=== PATIENT | female | born 1960 | race Caucasian/White ===

== ENCOUNTER 2016-05-03 20:27 | Inpatient (IN) | payer MEDICAID, OTHER ==
[~2016-05-03] VITALS: Ht 157.5 cm; Wt 130.0 kg
[~2016-05-03 20:27] MED LIST: ACCUTES; ASPI81 PO; ATOR20TA PO; BUME2TAB PO; CYCL1PAK PO; DIAZ5 PO; GABA400C5 PO; GLIM1TAB PO; HOME 02; HYDR10SO PO; KLOR20TA6 PO; LEVO150T7 PO; LISI-357 PO; METO5TAB46 PO; OMEP20TA OR; PREC50TA PO; RANI150T PO; SERT25TA83 PO
[2016-05-03 20:31] VITALS: BP 166/73; PULSE 68; RESP 20; TEMP 99.4; O2SAT 94
[2016-05-03] MEDS ORDERED: SODIUM CHLORIDE 0.9% FLUSH 5 ML FLUSH IVF PRN (20:45)
--- NOTE | 2016-05-03 20:46 | PD ---
HPI Chief Complaint: Altered Mental Status Time Seen by Provider: 20:43 Travel History International Travel<30 days: No Contact w/Intl Traveler<30days: No Traveled to known affect area: No History of Present Illness HPI Patient brought in by EMS for reportedly being altered at home today. Paramedics report that family reports patient does this from time to time when she does not want to be bothered, but does have a history of DKA, diabetic coma , as well as COPD and is noncompliant with her medicine per family per EMS. Patient denies any complaints currently. Denies any chest pain, shortness of breath, headache, fever, abdominal pain, numbness or tingling anywhere, or loss or change in bowel or bladder. Patient reports her blood sugars usually run around 100-150. Per EMS patient oxygen saturation was 86%'s percent on room air upon their arrival. PFSH Past Medical History Arthritis: Yes Asthma: No Autoimmune Disease: Yes (lupus) Blood Disorders: No Anxiety: No Depression: No Heart Rhythm Problems: Yes (SLOW HEART RATE AT TIMES PER PT) Cancer: No Cardiac Catheterization: Yes Cardiovascular Problems: Yes High Cholesterol: Yes Chemotherapy: No Chest Pain: No Congestive Heart Failure: Yes COPD: Yes (02 AT HOME) Cerebrovascular Accident: No Coronary Artery Disease: Yes Diabetes: Yes Patient Takes Glucophage: No Diminished Hearing: No Gastrointestinal Disorders: Yes (ACID REFULX) GERD: Yes Glaucoma: No Headaches: Yes Hepatitis: No Hiatal Hernia: Yes Hypertension: Yes Kidney Stones: No Musculoskeletal: Yes (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) Immunizations Current: No Myocardial Infarction: No Radiation Therapy: No Renal Failure: No Seizures: No Sickle Cell Disease: No Sleep Apnea: No Thyroid Disease: Yes (HYPO) Triglycerides - High: Yes Ulcer: Yes (IN PAST) Tetanus Vaccination: Unknown ?: Not Menopausal: Yes : 1 Para: 0 Miscarriage: 1 : 0 Past Surgical History Abdominal Surgery: No AICD: No Cardiac Surgery: No Coronary Artery Bypass Graft: No Ear Surgery: No Endocrine Surgery: No Eye Surgery: No Genitourinary Surgery: No Gynecologic Surgery: No Oral Surgery: No Pacemaker: No Thoracic Surgery: No Family History Family Myocardial Infarction: Yes Social History Alcohol Use: No Tobacco Use: No (3 PPD FOR 30 YEARS-QUIT 2005) Substance Use: No Allergies-Medications (Allergen,Severity, Reaction): Coded Allergies: Clindamycin (Verified Allergy, Severe, HIVES, 05/03/16) Xanax (Verified Allergy, Severe, HALLUCINATIONS, 05/03/16) Elavil (Verified Adverse Reaction, Severe, N/V, 05/03/16) Tetracyclines (Verified Adverse Reaction, Severe, Diarrhea, 05/03/16) Reported Meds & Prescriptions Reported Meds & Active Scripts Active Reported Amaryl (Glimepiride) 1 Mg Tab 0.5 Mg PO DAILY Take with breakfast or first main meal [place] (Hydrocodone-Acetaminophen) 10-325 Mg Tab 2 Tab PO Q4H PRN Zoloft (Sertraline HCl) 50 Mg Tab 75 Mg PO DAILY Oxycodone (Oxycodone HCl) 10 Mg Tab 10 Mg PO Q4H PRN Methadone (Methadone HCl) 10 Mg Tab 10 Mg PO BID Atorvastatin (Atorvastatin Calcium) 20 Mg Tab 20 Mg PO DAILY Lipitor (Atorvastatin Calcium) 20 Mg Tab 20 Mg PO HS Phenergan (Promethazine HCl) 25 Mg Tab 25 Mg PO Q6H PRN Nitroglycerin SL (Nitroglycerin) 0.4 Mg Subl 0.4 Mg SL DIRECTED PRN ONE TABLET UNDER THE TONGUE NEEDED FOR CHEST PAIN, MAY REPEAT EVERY FIVE MINUTES FOR A TOTAL OF 3 DOSES OR CALL 911 IF NO RELIEF Flexeril (Cyclobenzaprine HCl) 10 Mg Tab 10 Mg PO TID PRN Albuterol Neb (Albuterol Sulfate) 2.5 Mg/3 Ml Neb 2.5 Mg NEB Q4HR NEB PRN While awake Baclofen 10 Mg Tab 10 Mg PO TID PRN Metolazone 5 Mg Tab 5 Mg PO EVERY OTHER DAY Levothyroxine (Levothyroxine Sodium) 200 Mcg Tab 225 Mcg PO DAILY Valium (Diazepam) 5 Mg Tab 5 Mg PO Q6HR PRN Calcium (Calcium Carbonate) 600 Mg Tab 600 Mg PO DAILY Prilosec (Omeprazole) 20 Mg Cap 20 Mg PO BID Gabapentin 400 Mg Cap 400 Cap PO TID Bumex (Bumetanide) 2 Mg Tab 2 Mg PO EVERY OTHER DAY Precose (Acarbose) 25 Mg Tab 25 Mg PO DAILY Take with first bite of meal. Senna S (Sennosides-Docusate Sodium) 8.6-50 Mg Tab Lipitor (Atorvastatin Calcium) 40 Mg Tab 40 Mg PO HS Aspirin 81 (Aspirin) 81 Mg Tabdr 81 Mg PO DAILY Lisinopril 5 Mg Tab 5 Mg PO HS Ambien (Zolpidem Tartrate) 5 Mg Tab 5 Mg PO HS PRN Metronidazole Topical 0.75 % Gel 1 Applic TOPICAL BID Potassium Chloride CR (Potassium Chloride) 10 Meq Tab 20 Meq PO HS Acid Shoe Planner (Ranitidine HCl) 75 Mg Tab 75 Mg PO BID Review of Systems Except as stated in HPI: all other systems reviewed are Neg Physical Exam Narrative GENERAL: Well-developed, overly nourished, in no acute distress, and non-ill appearing. SKIN: Warm and dry. HEAD: Atraumatic. Normocephalic. EYES: Pupils equal and round. EOMI. No scleral icterus. No injection or drainage. ENT: No nasal bleeding or discharge. Mucous membranes pink and moist. NECK: Trachea midline. Supple. No nuclear rigidity. CARDIOVASCULAR: Regular rate and rhythm. No murmur appreciated. RESPIRATORY: No accessory muscle use. No respiratory distress. Clear to auscultation. Breath sounds equal bilaterally. GASTROINTESTINAL: Abdomen soft, non-tender, nondistended. Hepatic and splenic margins not palpable. Normal bowel sounds 4. No pulsatile mass. MUSCULOSKELETAL: No obvious deformities. No clubbing. No cyanosis. No edema. Full range of motion. NEUROLOGICAL: Awake and alert. No obvious cranial nerve deficits. Motor grossly within normal limits. Normal speech. PSYCHIATRIC: Appropriate mood and affect; insight and judgment normal. Data Data Last Documented VS Vital Signs Date Time Temp Pulse Resp B/P Pulse Ox O2 Delivery O2 Flow Rate FiO2 05/03/16 21:15 98 35 05/03/16 20:59 Nasal Cannula 4 05/03/16 20:31 99.4 68 20 166/73 Orders Electrocardiogram (05/03/16 20:39) Alcohol (Ethanol) (05/03/16 20:39) Ammonia (05/03/16 20:39) Complete Blood Count With Diff (05/03/16 20:39) Comprehensive Metabolic Panel (05/03/16 20:39) Creatine Kinase (Cpk) (05/03/16 20:39) Drug Screen, Random Urine (05/03/16 20:39) Prothrombin Time / Inr (Pt) (05/03/16 20:39) Act Partial Throm Time (Ptt) (05/03/16 20:39) Troponin I (05/03/16 20:39) Thyroid Stimulating Hormone (05/03/16 20:39) Urinalysis - C+S If Indicated (05/03/16 20:39) Arterial Blood Gas (Abg) (05/03/16 20:39) Chest, Single Ap (05/03/16 20:39) Ct Brain W/O Iv Contrast(Rout) (05/03/16 20:39) Blood Glucose (05/03/16 20:39) Ecg Monitoring (05/03/16 20:39) Iv Access Insert/Monitor (05/03/16 20:39) Oximetry (05/03/16 20:39) Sodium Chloride 0.9% Flush (Ns Flush) (05/03/16 20:45) Lipase (05/03/16 20:39) Beta Hydroxybutyrate (Acetone) (05/03/16 20:39) Resp Bipap / Cpap Non Invas Vt (05/03/16 21:25) Admit Order (Ed Use Only) (05/03/16 23:04) Labs Laboratory Tests Test 05/03/16 05/03/16 05/03/16 20:45 20:50 21:10 White Blood Count 6.1 TH/MM3 Red Blood Count 3.60 MIL/MM3 Hemoglobin 10.0 GM/DL Hematocrit 31.3 % Mean Corpuscular Volume 87.0 FL Mean Corpuscular Hemoglobin 27.7 PG Mean Corpuscular Hemoglobin 31.8 % Concent Red Cell Distribution Width 14.8 % Platelet Count 173 TH/MM3 Mean Platelet Volume 9.4 FL Neutrophils (%) (Auto) 63.6 % Lymphocytes (%) (Auto) 23.8 % Monocytes (%) (Auto) 9.2 % Eosinophils (%) (Auto) 2.8 % Basophils (%) (Auto) 0.6 % Neutrophils # (Auto) 3.9 TH/MM3 Lymphocytes # (Auto) 1.5 TH/MM3 Monocytes # (Auto) 0.6 TH/MM3 Eosinophils # (Auto) 0.2 TH/MM3 Basophils # (Auto) 0.0 TH/MM3 CBC Comment DIFF FINAL Differential Comment Prothrombin Time 10.1 SEC Prothromb Time International 0.9 RATIO Ratio Activated Partial 25.7 SEC Thromboplast Time Sodium Level 138 MEQ/L Potassium Level 5.2 MEQ/L Chloride Level 97 MEQ/L Carbon Dioxide Level 35.1 MEQ/L Anion Gap 6 MEQ/L Blood Urea Nitrogen 19 MG/DL Creatinine 0.86 MG/DL Estimat Glomerular Filtration 69 ML/MIN Rate Random Glucose 87 MG/DL Calcium Level 8.7 MG/DL Total Bilirubin 0.2 MG/DL Aspartate Amino Transf 14 U/L (AST/SGOT) Alanine Aminotransferase 15 U/L (ALT/SGPT) Alkaline Phosphatase 74 U/L Ammonia 24 MCMOL/L Total Creatine Kinase 41 U/L Troponin I LESS THAN 0.02 NG/ML Total Protein 7.8 GM/DL Albumin 3.0 GM/DL Lipase 112 U/L Thyroid Stimulating Hormone 2.250 uIU/ML 3rd Gen Ethyl Alcohol Level LESS THAN 3 MG/DL B-Hydroxybutyrate 0.07 MMOL/L Urine Color YELLOW Urine Turbidity CLEAR Urine pH 5.5 Urine Specific [place] 1.014 Urine Protein NEG mg/dL Urine Glucose (UA) NEG mg/dL Urine Ketones NEG mg/dL Urine Occult Blood NEG Urine Nitrite NEG Urine Bilirubin NEG Urine Urobilinogen LESS THAN 2.0 MG/DL Urine Leukocyte Esterase NEG Urine RBC LESS THAN 1 /hpf Urine WBC LESS THAN 1 /hpf Urine Squamous Epithelial <1 /hpf Cells Urine Hyaline Casts 10 /lpf Urine Mucus FEW /lpf Microscopic Urinalysis Comment CATH-CULT NOT IND Urine Opiates Screen NEG Urine Barbiturates Screen NEG Urine Amphetamines Screen NEG Urine Benzodiazepines Screen NEG Urine Cocaine Screen NEG Urine Cannabinoids Screen NEG Blood Gas Puncture Site RT RADIAL Blood Gas Patient Temperature 98.6 Blood Gas HCO3 35 mmol/L Blood Gas Base Excess 8.9 mmol/L Blood Gas Oxygen Saturation 92 % Arterial Blood pH 7.31 Arterial Blood Partial 73 mmHg Pressure CO2 Arterial Blood Partial 78 mmHG Pressure O2 Arterial Blood Oxygen Content 13.4 Vol % Arterial Blood 2.3 % Carboxyhemoglobin Arterial Blood Methemoglobin 2.1 % Blood Gas Hemoglobin 10.3 G/DL Oxygen Delivery Device NASAL CANNULA Blood Gas Liter Flow 2 L/M Blood Gas Inspired Oxygen 28 % [facility] Medical Decision Making Medical Screen Exam Complete: Yes Emergency Medical Condition: Yes Interpretation(s) EKG reviewed by Dr. Riggins, shows sinus rhythm with ventricular rate 66. No STEMI Differential Diagnosis DKA, hypoxia, pneumothorax, intracranial hemorrhage, medical noncompliance, electrolyte abnormality, pneumonia, other Narrative Course 2199 patient's hospice runner nurse reports patient is on hospice for nonspecific heart failure. Patient was seen and examined. Initial laboratory radiological studies were ordered. BiPAP was started after patient's ABG shows respiratory acidosis with a PCO2 of 72.6. Discussed patient with Dr. Riggins, who saw and evaluated the patien is in agreement with plan of care and disposition. Physician Communication Physician Communication [phone] Neumann, who is agreeable to admit the patient. Diagnosis Primary Impression: Generalized weakness Additional Impression: Hypercapnia Admitting Information Admitting Physician Requests: Admit Condition: Stable Jose Ty May 03, 2016 20:46
[2016-05-03 20:59] VITALS: O2SAT 95
--- NOTE | 2016-05-03 21:11 | PD ---
Physical Exam Narrative General: The patient is a well-developed well-nourished, obese female, in no acute distress. Head and Neck exam: Head is normocephalic atraumatic. Eyes: Pupils are equal round and reactive to light. Nose: Midline septum with pink mucous membranes Mouth: Dentition unremarkable. Moist mucus membranes. Posterior oropharynx is not erythematous. No tonsillar hypertrophy. Uvula midline. Airway patent. Neck: No palpable lymphadenopathy. No nuchal rigidity. No thyromegaly. Cardiovascular: Regular rate and rhythm without murmurs, gallops, or rubs. Lungs: Clear to auscultation bilaterally. No wheezes, rhonchi, or rales. Abdomen: Soft, without tenderness to palpation in all 4 quadrants of the abdomen. No guarding, rebound, or rigidity. Normal bowel sounds are audible. Extremities: No clubbing, cyanosis, or edema. 2+ pulses in all 4 extremities. Neurologic Exam: Grossly nonfocal. Data Data Last Documented VS Vital Signs Date Time Temp Pulse Resp B/P Pulse Ox O2 Delivery O2 Flow Rate FiO2 05/03/16 21:15 98 35 05/03/16 20:59 Nasal Cannula 4 05/03/16 20:31 99.4 68 20 166/73 Orders Electrocardiogram (05/03/16 20:39) Alcohol (Ethanol) (05/03/16 20:39) Ammonia (05/03/16 20:39) Complete Blood Count With Diff (05/03/16 20:39) Comprehensive Metabolic Panel (05/03/16 20:39) Creatine Kinase (Cpk) (05/03/16 20:39) Drug Screen, Random Urine (05/03/16 20:39) Prothrombin Time / Inr (Pt) (05/03/16 20:39) Act Partial Throm Time (Ptt) (05/03/16 20:39) Troponin I (05/03/16 20:39) Thyroid Stimulating Hormone (05/03/16 20:39) Urinalysis - C+S If Indicated (05/03/16 20:39) Arterial Blood Gas (Abg) (05/03/16 20:39) Chest, Single Ap (05/03/16 20:39) Ct Brain W/O Iv Contrast(Rout) (05/03/16 20:39) Blood Glucose (05/03/16 20:39) Ecg Monitoring (05/03/16 20:39) Iv Access Insert/Monitor (05/03/16 20:39) Oximetry (05/03/16 20:39) Sodium Chloride 0.9% Flush (Ns Flush) (05/03/16 20:45) Lipase (05/03/16 20:39) Beta Hydroxybutyrate (Acetone) (05/03/16 20:39) Resp Bipap / Cpap Non Invas Vt (05/03/16 21:25) Admit Order (Ed Use Only) (05/03/16 23:04) Labs Laboratory Tests Test 05/03/16 05/03/16 05/03/16 20:45 20:50 21:10 White Blood Count 6.1 TH/MM3 Red Blood Count 3.60 MIL/MM3 Hemoglobin 10.0 GM/DL Hematocrit 31.3 % Mean Corpuscular Volume 87.0 FL Mean Corpuscular Hemoglobin 27.7 PG Mean Corpuscular Hemoglobin 31.8 % Concent Red Cell Distribution Width 14.8 % Platelet Count 173 TH/MM3 Mean Platelet Volume 9.4 FL Neutrophils (%) (Auto) 63.6 % Lymphocytes (%) (Auto) 23.8 % Monocytes (%) (Auto) 9.2 % Eosinophils (%) (Auto) 2.8 % Basophils (%) (Auto) 0.6 % Neutrophils # (Auto) 3.9 TH/MM3 Lymphocytes # (Auto) 1.5 TH/MM3 Monocytes # (Auto) 0.6 TH/MM3 Eosinophils # (Auto) 0.2 TH/MM3 Basophils # (Auto) 0.0 TH/MM3 CBC Comment DIFF FINAL Differential Comment Prothrombin Time 10.1 SEC Prothromb Time International 0.9 RATIO Ratio Activated Partial 25.7 SEC Thromboplast Time Sodium Level 138 MEQ/L Potassium Level 5.2 MEQ/L Chloride Level 97 MEQ/L Carbon Dioxide Level 35.1 MEQ/L Anion Gap 6 MEQ/L Blood Urea Nitrogen 19 MG/DL Creatinine 0.86 MG/DL Estimat Glomerular Filtration 69 ML/MIN Rate Random Glucose 87 MG/DL Calcium Level 8.7 MG/DL Total Bilirubin 0.2 MG/DL Aspartate Amino Transf 14 U/L (AST/SGOT) Alanine Aminotransferase 15 U/L (ALT/SGPT) Alkaline Phosphatase 74 U/L Ammonia 24 MCMOL/L Total Creatine Kinase 41 U/L Troponin I LESS THAN 0.02 NG/ML Total Protein 7.8 GM/DL Albumin 3.0 GM/DL Lipase 112 U/L Thyroid Stimulating Hormone 2.250 uIU/ML 3rd Gen Ethyl Alcohol Level LESS THAN 3 MG/DL B-Hydroxybutyrate 0.07 MMOL/L Urine Color YELLOW Urine Turbidity CLEAR Urine pH 5.5 Urine Specific [place] 1.014 Urine Protein NEG mg/dL Urine Glucose (UA) NEG mg/dL Urine Ketones NEG mg/dL Urine Occult Blood NEG Urine Nitrite NEG Urine Bilirubin NEG Urine Urobilinogen LESS THAN 2.0 MG/DL Urine Leukocyte Esterase NEG Urine RBC LESS THAN 1 /hpf Urine WBC LESS THAN 1 /hpf Urine Squamous Epithelial <1 /hpf Cells Urine Hyaline Casts 10 /lpf Urine Mucus FEW /lpf Microscopic Urinalysis Comment CATH-CULT NOT IND Urine Opiates Screen NEG Urine Barbiturates Screen NEG Urine Amphetamines Screen NEG Urine Benzodiazepines Screen NEG Urine Cocaine Screen NEG Urine Cannabinoids Screen NEG Blood Gas Puncture Site RT RADIAL Blood Gas Patient Temperature 98.6 Blood Gas HCO3 35 mmol/L Blood Gas Base Excess 8.9 mmol/L Blood Gas Oxygen Saturation 92 % Arterial Blood pH 7.31 Arterial Blood Partial 73 mmHg Pressure CO2 Arterial Blood Partial 78 mmHG Pressure O2 Arterial Blood Oxygen Content 13.4 Vol % Arterial Blood 2.3 % Carboxyhemoglobin Arterial Blood Methemoglobin 2.1 % Blood Gas Hemoglobin 10.3 G/DL Oxygen Delivery Device NASAL CANNULA Blood Gas Liter Flow 2 L/M Blood Gas Inspired Oxygen 28 % [facility] Medical Record Reviewed: Yes Supervised Visit with ORALIA: Yes Interpretation(s) Last Impressions Head CT 05/03/162038 Signed Impressions: Service Date/Time: Wednesday, May 04, 2016 01:13 - CONCLUSION: Normal examination. Gerard Wylie MD Chest X-Ray 05/03/162038 Signed Impressions: Service Date/Time: Tuesday, May 03, 2016 20:43 - CONCLUSION: Cardiomegaly with subsegmental basilar air space disease. Differential diagnosis includes early changes of pulmonary edema. Adeel Perez MD Narrative Course I, Dr. Riggins, have reviewed the advance practice practitioner's documentation and am in agreement, met with the patient face to face, made the diagnosis, and the medical decision making was done by me. The patient was initially evaluated by Jose, the physician delinquent tax collection assistant, please see his complete history and physical. *My assessment and Findings: The patient is a 56-year-old female who presents to [facility] emergency Department with a reported history of earlier this evening falling. She reports that it seemed like her legs just gave out on her. She denies having any generalized weakness prior to this. She denies having any injury. She reports that she was home with family when this occurred. She denies having any chest pain, chest pressure, shortness of breath, nausea, vomiting, diarrhea, change in bowel movements. The patient denies taking any prescribed sedative medications were pain medication. The patient on arrival appears to be slightly drowsy. The patient's strength is equal in all extremities. The patient denies having any acute complaints. She denies any recent changes in her medication regimen. A workup was started. Laboratory studies were remarkable for an ABG that showed hypercapnia which could be a possible cause of the patient's altered mentation, generalized weakness. CMP was remarkable for a potassium of 5.2, CO2 35.1, BUN 19, creatinine 0.86. The patient's mild hyperkalemia could also be a cause of the patient's generalized weakness. Ammonia level was normal at 24. Initial set of cardiac enzymes were negative. TSH 2.25, urine drug screen was negative. Beta hydroxybutyrate is normal. Alcohol level is normal. CT scan of the brain showed no acute abnormality. Chest x-ray showed cardiomegaly subsegmental basilar airspace disease which could represent early changes of pulmonary edema. The patient will be admitted to the hospital for altered mentation, generalized weakness, hypercapnia and hyperkalemia. The patients results were discussed with the patient, including the plan of care. I explained that further testing and/ or monitoring is indicated based on the patients history, examination, and/ or laboratory findings. Therefore, I recommended admission for additional evaluation. The patient expressed understanding and was agreeable with this plan. The patient was admitted to the hospital in stable condition and [facility]. Diagnosis Primary Impression: Generalized weakness Additional Impressions: Hypercapnia Hyperkalemia Admitting Information Admitting Physician Requests: Admit Simran Riggins MD May 03, 2016 21:11
[2016-05-03 21:15] VITALS: O2SAT 98
[2016-05-03 21:18] LABS: AUTOMATED NEUTROPHIL # 3.9 TH/MM3 (1.8-7.7); BASOPHIL % 0.6 % (0.0-2.0); EOSINOPHIL # 0.2 TH/MM3 (0-0.4); EOSINOPHIL % 2.8 % (0.0-4.0); HEMATOCRIT 31.3 % (35.0-46.0); HEMO FLAGS DIFF FINAL; LYMPH % 23.8 % (9.0-44.0); LYMPHOCYTE # 1.5 TH/MM3 (1.0-4.8); MEAN CORPUSCULAR HEMOGLOBIN 27.7 PG (27.0-34.0); MEAN CORPUSCULAR HGB CONC 31.8 % (32.0-36.0); MONO % 9.2 % (0.0-8.0); NEUT % 63.6 % (16.0-70.0); PLATELET COUNT 173 TH/MM3 (150-450); RED CELL DISTRIBUTION WIDTH 14.8 % (11.6-17.2); WHITE BLOOD COUNT 6.1 TH/MM3 (4.0-11.0)
[2016-05-03 21:21] LABS: BLOOD, URINE NEG (NEG); COMMENT (UR) CATH-CULT NOT IND; CULTURE IF INDICATED CATH CULTURE NOT IND; GLUCOSE,URINE NEG (NEG); HYALINE CAST, URINE 10 /lpf (RARE); KETONE, URINE NEG (NEG); MUCUS URINE FEW /lpf (OCC); NITRITE,URINE NEG (NEG); PH, URINE 5.5 (5.0-8.5); SQUAMOUS EPITHELIAL CELL URINE <1 /hpf (0-5); URINE COLOR YELLOW (YELLW/STRAW)
[2016-05-03 21:21] LABS: BLOOD GAS BASE EXCESS 8.9 mmol/L (-2-2); BLOOD GAS CARBOXYHEMOGLOBIN 2.3 % (0-4); BLOOD GAS HCO3 35 mmol/L (22-26); BLOOD GAS METHEMOGLOBIN 2.1 % (0-2); BLOOD GAS O2 HGB SATURATION 92 % (90-100); BLOOD GAS OXYGEN CONTENT 13.4 Vol % (12.0-20.0); BLOOD GAS PCO2 73 mmHg (38-42); BLOOD GAS PO2 78 mmHG (61-120); BLOOD GAS TOTAL HGB 10.3 G/DL (12.0-16.0); CRITICAL VALUE YES; TEMP CORR TO 98.6
[2016-05-03 21:22] LABS: DRAW SITE RT RADIAL; FIO2 28 %; LITER FLOW 2 L/M; NUMBER OF ARTERIAL PUNCTURES 1; OXYGEN DEVICE NASAL CANNULA; STAT YES; ULNAR PULSE PRESENT
--- NOTE | 2016-05-03 21:23 | RADRPT ---
EXAM DATE/TIME: 05/03/2016 20:43 [facility] COMPARISON: No previous studies available for comparison. INDICATIONS : Short of breath, hypoxic. MEDICAL HISTORY : None. SURGICAL HISTORY : None. ENCOUNTER: Initial ACUITY: 2 days PAIN SCORE: 0/10 LOCATION: Bilateral chest FINDINGS: A single view of the chest demonstrates cardiomegaly. Subsegmental basilar airspace disease. No signi ficant effusion. No pneumothorax. CONCLUSION: Cardiomegaly with subsegmental basilar air space disease. Differential diagnosis includes early dill es of pulmonary edema. Adeel Perez MD on May 03, 2016 at 21:21 Board Certified Radiologist. This report was verified electronically.
[2016-05-03 21:28] LABS: APTT (PATIENT) 25.7 SEC (24.3-30.1); INTERNATIONAL NORMALIZED RATIO 0.9 RATIO; PROTHROMBIN TIME - PATIENT 10.1 SEC (9.8-11.6)
[2016-05-03 21:32] LABS: AMPHETAMINE, URINE NEG (NEG); BARBITURATES, URINE NEG (NEG); COCAINE, URINE NEG (NEG)
[2016-05-03 21:51] LABS: ALKALINE PHOSPHATASE 74 U/L (45-117); ALT (GPT) 15 U/L (10-53); ANION GAP 6 MEQ/L (5-15); AST (GOT) 14 U/L (15-37); BETA-HYDROXYBUTYRATE 0.07 MMOL/L (0.00-0.39); BICARBONATE 35.1 MEQ/L (21.0-32.0); BLOOD UREA NITROGEN 19 MG/DL (7-18); CHLORIDE 97 MEQ/L (98-107); GLOMERULAR FILTRATION RATE 69 ML/MIN (>89); POTASSIUM 5.2 MEQ/L (3.5-5.1); SODIUM (NA) 138 MEQ/L (136-145); TOTAL BILIRUBIN ADULT 0.2 MG/DL (0.2-1.0)
[2016-05-03 22:18] LABS: CREATINE KINASE 41 U/L (26-192)
[2016-05-03] MEDS ORDERED: SODIUM CHLORIDE 0.9% FLUSH 5 ML FLUSH FLUSH PRN (23:30)
[2016-05-03] MEDS ORDERED: NALOXONE HCL 0.4 MG/ML AMP IV PRN (23:30)
[2016-05-03] MEDS ORDERED: DEXTROSE 50% IN WATER 50 ML VIAL(D50) IV PUSH PRN (23:30)
[2016-05-03] MEDS ORDERED: GLUCAGON 1 MG/ML VIAL OTHER PRN (23:30)
[2016-05-03] MEDS ORDERED: LEVO200T4 PO (23:41)
[2016-05-03] MEDS ORDERED: SENN8.6T8 (23:41)
[2016-05-03] MEDS ORDERED: GABA400C5 PO (23:41)
[2016-05-03] MEDS ORDERED: LISI-519 PO (23:41)
[2016-05-03] MEDS ORDERED: CYCL1TAB29 PO (23:41)
[2016-05-03] MEDS ORDERED: ZOLO50TA PO (23:41)
[2016-05-03] MEDS ORDERED: DIAZ5 PO (23:41)
[2016-05-03] MEDS ORDERED: LIPI40TA PO (23:41)
[2016-05-03] MEDS ORDERED: BACL10TA PO (23:41)
[2016-05-03] MEDS ORDERED: ASPI-110 PO (23:41)
[2016-05-03] MEDS ORDERED: METH10TA PO (23:41)
[2016-05-03] MEDS ORDERED: LIPI20TA PO (23:41)
[2016-05-03] MEDS ORDERED: NITR1SUB3 SL (23:41)
[2016-05-03] MEDS ORDERED: OXYC-395 PO (23:41)
[2016-05-03] MEDS ORDERED: AMBI5TAB PO (23:41)
[2016-05-03] MEDS ORDERED: BUME1TAB28 PO (23:41)
[2016-05-03] MEDS ORDERED: ACID75TA6 PO (23:41)
[2016-05-03] MEDS ORDERED: POTA10TA8 PO (23:41)
[2016-05-03] MEDS ORDERED: ATOR20TA15 PO (23:41)
[2016-05-03] MEDS ORDERED: PREC25TA PO (23:41)
[2016-05-03] MEDS ORDERED: PROM25TA5 PO (23:41)
[2016-05-03] MEDS ORDERED: CALC600T25 PO (23:41)
[2016-05-03] MEDS ORDERED: METO5TAB3 PO (23:41)
[2016-05-03] MEDS ORDERED: ALBU0.08 NEB (23:41)
[2016-05-03] MEDS ORDERED: GLIM1 PO (23:41)
[2016-05-03] MEDS ORDERED: HYDR-3366 PO (23:41)
[2016-05-03] MEDS ORDERED: PRIL20CA9 PO (23:41)
[2016-05-03] MEDS ORDERED: METR0.7537 TOPICAL (23:41)
[2016-05-04] VITALS (9 sets, daily range): BP systolic 119–165; BP diastolic 56–71; PULSE 68–83; RESP 16–20; TEMP 97.7–98.3; O2SAT 94–98
--- NOTE | 2016-05-04 01:26 | RADRPT ---
EXAM DATE/TIME: 05/04/2016 01:13 [facility] COMPARISON: No previous studies available for comparison. INDICATIONS : Altered mental status. RADIATION DOSE: 44.51 CTDIvol (mGy) MEDICAL HISTORY : Cardiovascular disease. Hypertension. Diabetes mellitus type 2.Lupus SURGICAL HISTORY : None. ENCOUNTER: Initial ACUITY: 1 day PAIN SCALE: 0/10 LOCATION: cranial TECHNIQUE: Multiple contiguous axial images were obtained of the head. Using automated exposure control and adj ustment of the mA and/or kV according to patient size, radiation dose was kept as low as reasonably a chievable to obtain optimal diagnostic quality images. FINDINGS: CEREBRUM: The ventricles are normal for age. No evidence of midline shift, mass lesion, hemorrhage or acute in farction. No extra-axial fluid collections are seen. POSTERIOR FOSSA: The cerebellum and brainstem are intact. The 4th ventricle is midline. The cerebellopontine angle i s unremarkable. EXTRACRANIAL: The visualized portion of the orbits is intact. SKULL: The calvaria is intact. No evidence of skull fracture. CONCLUSION: Normal examination. Gerard Wylie MD on May 04, 2016 at 1:24 Board Certified Radiologist. This report was verified electronically.
[2016-05-04 05:00] LABS: AUTOMATED NEUTROPHIL # 4.1 TH/MM3 (1.8-7.7); BASOPHIL % 0.4 % (0.0-2.0); EOSINOPHIL # 0.2 TH/MM3 (0-0.4); EOSINOPHIL % 2.6 % (0.0-4.0); HEMO FLAGS DIFF FINAL; LYMPH % 24.5 % (9.0-44.0); LYMPHOCYTE # 1.6 TH/MM3 (1.0-4.8); MEAN CELL VOLUME 86.9 FL (80.0-100.0); MEAN CORPUSCULAR HEMOGLOBIN 27.4 PG (27.0-34.0); MEAN CORPUSCULAR HGB CONC 31.5 % (32.0-36.0); MONO % 8.6 % (0.0-8.0); NEUT % 63.9 % (16.0-70.0); PLATELET COUNT 167 TH/MM3 (150-450); RED BLOOD COUNT 3.57 MIL/MM3 (4.00-5.30); RED CELL DISTRIBUTION WIDTH 14.8 % (11.6-17.2); WHITE BLOOD COUNT 6.5 TH/MM3 (4.0-11.0)
[2016-05-04 05:15] LABS: BICARBONATE 36.8 MEQ/L (21.0-32.0); POTASSIUM 4.8 MEQ/L (3.5-5.1)
[2016-05-04] MEDS ORDERED: ACETAMINOPHEN 325 MG TAB PO PRN (07:30)
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
[2016-05-04] MEDS ORDERED: ZOLPIDEM TARTRATE 5 MG TAB PO PRN (09:15)
[2016-05-04] MEDS ORDERED: RESP: ALBUTEROL 2.5 MG/3 ML NEB (PRN) NEB (09:15)
[2016-05-04] MEDS ORDERED: BACLOFEN 10 MG TAB PO PRN (09:15)
[2016-05-04] MEDS ORDERED: PILL SPLITTER OTHER PRN (09:45)
[2016-05-04] MEDS: SODIUM CHLORIDE 0.9% FLUSH 5 ML FLUSH FLUSH SCH ×2 (14:20→21:14)
--- NOTE | 2016-05-04 17:16 | EKG ---
Date Performed: 05/03/2016 Time Performed: 20:48:32 PTAGE: 56 years EKG: Sinus rhythm WITH FIRST DEGREE AV BLOCK INCOMPLETE RIGHT BUNDLE BRANCH BLOCK POSSIBLE ANTERIOR MYOCARDIAL INFARCT ION Since previous tracing, no significant change noted ABNORMAL ECG PREVIOUS TRACING : 08/23/2012 20.30.38 DOCTOR: Johnny Mike Interpretating Date/Time 05/04/2016 17:14:48
[2016-05-04] MEDS: ATORVASTATIN 40 MG TAB PO SCH (21:10)
[2016-05-04] MEDS: PANTOPRAZOLE SOD 20 MG DELAYED RELEASE TAB PO SCH (21:10)
[2016-05-04] MEDS: LISINOPRIL 5 MG TAB PO SCH (21:11)
[2016-05-04] MEDS: METHADONE HCL 10 MG TAB PO SCH (21:11)
[2016-05-05] VITALS: BP 148/68; PULSE 68; RESP 18; TEMP 98.6; O2SAT 95
[2016-05-05] MEDS: LEVOTHYROXINE SODIUM 125 MCG TAB PO SCH (06:02)
[2016-05-05] MEDS: LEVOTHYROXINE SODIUM 100 MCG TAB PO SCH (06:02)
[2016-05-05 08:00] VITALS: BP 128/66; PULSE 78; RESP 19; TEMP 98.9; O2SAT 95
[2016-05-05] MEDS: SERTRALINE HCL 50 MG TAB PO SCH (08:42)
[2016-05-05] MEDS: CALCIUM CARBONATE 1.25 GM (CA 500 MG) TAB PO SCH (08:44)
[2016-05-05] MEDS: GLIMEPIRIDE 1 MG TAB PO SCH (08:44)
[2016-05-05] MEDS: PANTOPRAZOLE SOD 20 MG DELAYED RELEASE TAB PO SCH ×2 (08:44→21:06)
[2016-05-05] MEDS: ASPIRIN EC 81 MG TABEC PO SCH (08:45)
[2016-05-05] MEDS: METHADONE HCL 10 MG TAB PO SCH ×2 (08:45→21:07)
[2016-05-05] MEDS: SODIUM CHLORIDE 0.9% FLUSH 5 ML FLUSH FLUSH SCH ×2 (08:56→19:45)
[2016-05-05] MEDS: ACETAMINOPHEN/HYDROcodone 325 MG/10 MG TAB PO PRN ×4 (08:56→23:50)
[2016-05-05] MEDS ORDERED: LEVOTHYROXINE SODIUM 200 MCG TAB PO SCH (09:00)
[2016-05-05] MEDS ORDERED: AMBI5TAB PO (11:49)
[2016-05-05] MEDS ORDERED: HYDR-3366 PO (11:49)
[2016-05-05 12:00] VITALS: BP 96/54; PULSE 78; RESP 16; TEMP 98.9; O2SAT 95
[2016-05-05 16:00] VITALS: BP 113/58; PULSE 96; RESP 20; TEMP 97.8; O2SAT 96
--- NOTE | 2016-05-05 16:45 | HHI.PR ---
Subjective Remarks Patient reports that she is feeling better. She states that she is under the care of hospice and plans to go back on hospice care. She has been evaluated by physical therapy when indicated that she needs nursing home. She reports the [place] is uncomfortable. Objective Vitals Vital Signs Date Time Temp Pulse Resp B/P Pulse Ox O2 Delivery O2 Flow Rate FiO2 05/05/16 12:00 98.9 78 16 96/54 95 05/05/16 08:00 98.9 78 19 128/66 95 05/05/16 00:00 98.6 68 18 148/68 95 05/04/16 20:00 98.3 73 18 150/69 95 I/O 05/04/16 05/04/16 05/04/16 05/05/16 05/05/16 05/05/16 07:00 15:00 23:00 07:00 15:00 23:00 Intake Total 240 ml 240 ml 600 ml Output Total 1300 ml 2600 ml 1200 ml 400 ml 1000 ml Balance -1300 ml -2600 ml -960 ml -160 ml -400 ml Intake Oral 240 ml 240 ml 600 ml IV Total 0 ml Output Urine Total 1300 ml 2600 ml 1200 ml 400 ml 1000 ml # Voids 0 # Bowel Movements 1 2 0 1 Result Diagram: 05/04/1640505/04/16405 Imaging Last Impressions Head CT 05/03/162038 Signed Impressions: Service Date/Time: Wednesday, May 04, 2016 01:13 - CONCLUSION: Normal examination. Gerard Wylie MD Chest X-Ray 05/03/162038 Signed Impressions: Service Date/Time: Tuesday, May 03, 2016 20:43 - CONCLUSION: Cardiomegaly with subsegmental basilar air space disease. Differential diagnosis includes early changes of pulmonary edema. Adeel Perez MD Objective Remarks GENERAL: Obese female in no acute distress. CARDIOVASCULAR: Normal rate and regular rhythm without murmurs, gallops, or rubs. RESPIRATORY: Good respiratory efforts. Breath sounds equal and clear to auscultation bilaterally. GASTROINTESTINAL: Abdomen soft, non-tender, non-distended. Normal active bowel sounds MUSCULOSKELETAL: Extremities without cyanosis, or edema. NEURO: Alert & Oriented x4 to person, place, time, situation. Moves all ext x4 but is generally weak. PSYCH: Appropriate mood and affect. A/P Problem List: (1) Hypercapnia ICD Code: R06.89 Status: Acute (2) Generalized weakness ICD Code: R53.1 Status: Acute (3) Hyperkalemia ICD Code: E87.5 Status: Acute (4) DM type 2 (diabetes mellitus, type 2) ICD Code: E11.9 Status: Chronic (5) HTN (hypertension) ICD Code: I10 Status: Chronic (6) CHF (congestive heart failure) ICD Code: I50.9 Status: Chronic (7) COPD (chronic obstructive pulmonary disease) ICD Code: J44.9 Status: Chronic (8) Hypothyroidism ICD Code: E03.9 Status: Chronic Assessment and Plan Patient is a 56-year-old white female who came into the hospital with altered mental status. CT of the head showed normal examination. Encephalopathy -some underlying chronicity. Patient reports multiple chronic conditions including lupus. The patient's niece reported this has been an ongoing problem. She appeared to be more awake and alert today. - Patient is on multiple medications that can contribute to altered mental status. - CT of the head showed normal examination. - Reduce sedating medications CHF - chest x-ray showed cardiomegaly with subsegmental basilar airspace disease. Differential diagnosis includes early changes of pulmonary edema - continue Bumex 2 mg every other day, metolazone every other day -BNP unremarkable COPD, chronic - O2 dependent - Albuterol when necessary Generalized weakness - per family. Patient has been having recurrent falls at home they can no longer care for her. Physical therapy agreed the patient needs nursing home facility. - Risk for falls, patient can be discharged to a nursing home facility. DM 2 - continue glimepiride Chronic pain - continue on methadone, baclofen HTN - continue ASA, lisinopril 5 mg daily Hypothyroidism - TSH 2.250, continue levothyroxine Discharge Planning Patient is medically stable for discharge to nursing home facility. Activity: Per physical therapy Diet: Diabetic Follow-up with PCP as scheduled Medications: Per med rec Problem Qualifiers (1) DM type 2 (diabetes mellitus, type 2): Maria Del Carmen Nicholson MD May 05, 2016 16:44
[2016-05-05 20:00] VITALS: BP 90/54; PULSE 75; RESP 18; TEMP 98; O2SAT 97
[2016-05-05] MEDS: ATORVASTATIN 40 MG TAB PO SCH (21:06)
[2016-05-05] MEDS: LISINOPRIL 5 MG TAB PO SCH (21:06)
[2016-05-05 23:54] VITALS: BP 125/62; PULSE 65; RESP 20; TEMP 98.6; O2SAT 98
[2016-05-06] MEDS: LEVOTHYROXINE SODIUM 125 MCG TAB PO SCH (05:18)
[2016-05-06] MEDS: ACETAMINOPHEN/HYDROcodone 325 MG/10 MG TAB PO PRN ×2 (05:18→09:35)
[2016-05-06] MEDS: LEVOTHYROXINE SODIUM 100 MCG TAB PO SCH (05:18)
[2016-05-06 08:00] VITALS: BP 96/53; PULSE 66; TEMP 97.1; O2SAT 97
[2016-05-06] MEDS ORDERED: METOLAZONE 5 MG TAB PO SCH (09:00)
[2016-05-06] MEDS ORDERED: BUMETANIDE 1 MG TAB PO SCH (09:00)
[2016-05-06] MEDS: GLIMEPIRIDE 1 MG TAB PO SCH (09:34)
[2016-05-06] MEDS: ASPIRIN EC 81 MG TABEC PO SCH (09:34)
[2016-05-06] MEDS: SODIUM CHLORIDE 0.9% FLUSH 5 ML FLUSH FLUSH SCH ×2 (09:34→22:58)
[2016-05-06] MEDS: PANTOPRAZOLE SOD 20 MG DELAYED RELEASE TAB PO SCH ×2 (09:34→22:59)
[2016-05-06] MEDS: CALCIUM CARBONATE 1.25 GM (CA 500 MG) TAB PO SCH (09:34)
[2016-05-06] MEDS: SERTRALINE HCL 50 MG TAB PO SCH (09:35)
[2016-05-06] MEDS: METHADONE HCL 10 MG TAB PO SCH ×2 (09:35→21:00)
[2016-05-06 12:00] VITALS: BP 100/58; PULSE 63; RESP 18; TEMP 97.4; O2SAT 98
[2016-05-06 16:00] VITALS: BP 96/56; PULSE 67; RESP 18; TEMP 96.5; O2SAT 98
--- NOTE | 2016-05-06 18:18 | HHI.PR ---
Subjective Remarks Patient discharged yesterday. Awaiting placement at a [facility]ci facility from [facility]. She has no new complaints. Objective Vitals Vital Signs Date Time Temp Pulse Resp B/P Pulse Ox O2 Delivery O2 Flow Rate FiO2 05/06/16 12:00 97.4 63 18 100/58 98 05/06/16 08:00 97.1 66 96/53 97 05/06/16 06:18 18 05/05/16 23:54 98.6 65 20 125/62 98 05/05/16 22:07 18 05/05/16 20:00 98.0 75 18 90/54 97 I/O 05/05/16 05/05/16 05/05/16 05/06/16 05/06/16 05/06/16 07:00 15:00 23:00 07:00 15:00 23:00 Intake Total 240 ml 600 ml 240 ml 360 ml 1080 ml Output Total 400 ml 1000 ml 300 ml 300 ml Balance -160 ml -400 ml -60 ml 60 ml 1080 ml Intake Oral 240 ml 600 ml 240 ml 360 ml 1080 ml Output Urine Total 400 ml 1000 ml 300 ml 300 ml # Voids 4 # Bowel Movements 0 1 0 0 Result Diagram: 05/04/16 0406 05/04/16 0406 Objective Remarks GENERAL: Obese female in no acute distress. CARDIOVASCULAR: Normal rate and regular rhythm without murmurs, gallops, or rubs. RESPIRATORY: Good respiratory efforts. Breath sounds equal and clear to auscultation bilaterally. PSYCH: Appropriate mood and affect. A/P Problem List: (1) Hypercapnia ICD Code: R06.89 Status: Acute (2) Generalized weakness ICD Code: R53.1 Status: Acute (3) Hyperkalemia ICD Code: E87.5 Status: Acute (4) DM type 2 (diabetes mellitus, type 2) ICD Code: E11.9 Status: Chronic (5) HTN (hypertension) ICD Code: I10 Status: Chronic (6) CHF (congestive heart failure) ICD Code: I50.9 Status: Chronic (7) COPD (chronic obstructive pulmonary disease) ICD Code: J44.9 Status: Chronic (8) Hypothyroidism ICD Code: E03.9 Status: Chronic Assessment and Plan Patient is a 56-year-old white female who came into the hospital with altered mental status. CT of the head showed normal examination. Encephalopathy -some underlying chronicity. Patient reports multiple chronic conditions including lupus. The patient's niece reported this has been an ongoing problem. She appeared to be more awake and alert today. Family no longer able to care for her. - Patient is on multiple medications that can contribute to altered mental status. - CT of the head showed normal examination. -Sedating medications has been reduced CHF - chest x-ray showed cardiomegaly with subsegmental basilar airspace disease. Differential diagnosis includes early changes of pulmonary edema - continue Bumex 2 mg every other day, metolazone every other day -BNP unremarkable COPD, chronic - O2 dependent - Albuterol when necessary Generalized weakness - per family. Patient has been having recurrent falls at home they can no longer care for her. Physical therapy agreed the patient needs fci facility. - Risk for falls, patient can be discharged to a fci facility. DM 2 - continue glimepiride Chronic pain - continue on methadone, baclofen HTN - continue ASA, lisinopril 5 mg daily Hypothyroidism - TSH 2.250, continue levothyroxine Discharge Planning Patient is medically stable for discharge to fci facility once arrangements are made. Activity: Per physical therapy Diet: Diabetic Follow-up with PCP as scheduled Medications: Per med rec Problem Qualifiers (1) DM type 2 (diabetes mellitus, type 2): Maria Del Carmen Nicholson MD May 06, 2016 18:18
[2016-05-06 20:00] VITALS: BP 98/56; PULSE 68; RESP 20; TEMP 97; O2SAT 97
[2016-05-06] MEDS: ATORVASTATIN 40 MG TAB PO SCH (22:58)
[2016-05-06] MEDS: LISINOPRIL 5 MG TAB PO SCH (22:59)
[2016-05-07] VITALS: BP 100/58; PULSE 62; RESP 18; TEMP 97.8; O2SAT 97
[2016-05-07] MEDS: ACETAMINOPHEN/HYDROcodone 325 MG/10 MG TAB PO PRN ×3 (01:56→15:58)
[2016-05-07] MEDS: LEVOTHYROXINE SODIUM 100 MCG TAB PO SCH (06:54)
[2016-05-07] MEDS: LEVOTHYROXINE SODIUM 125 MCG TAB PO SCH (06:54)
[2016-05-07 08:00] VITALS: BP 102/60; PULSE 63; RESP 14; TEMP 96.9; O2SAT 95
[2016-05-07 08:08] VITALS: O2SAT 96
[2016-05-07] MEDS: CALCIUM CARBONATE 1.25 GM (CA 500 MG) TAB PO SCH (09:18)
[2016-05-07] MEDS: SODIUM CHLORIDE 0.9% FLUSH 5 ML FLUSH FLUSH SCH (09:18)
[2016-05-07] MEDS: METHADONE HCL 10 MG TAB PO SCH (09:18)
[2016-05-07] MEDS: PANTOPRAZOLE SOD 20 MG DELAYED RELEASE TAB PO SCH (09:18)
[2016-05-07] MEDS: ASPIRIN EC 81 MG TABEC PO SCH (09:19)
[2016-05-07] MEDS: SERTRALINE HCL 50 MG TAB PO SCH (09:19)
[2016-05-07] MEDS: GLIMEPIRIDE 1 MG TAB PO SCH (09:28)
--- NOTE | 2016-05-07 11:18 | HHI.PR ---
Subjective Remarks Patient discharge on 05/05/16. Has been awaiting placement. She reports to me she was accepted at intermediate facility under [facility]. Objective Vitals Vital Signs Date Time Temp Pulse Resp B/P Pulse Ox O2 Delivery O2 Flow Rate FiO2 05/07/16 08:08 96 Nasal Cannula 2.50 05/07/16 08:00 96.9 63 14 102/60 95 05/07/16 00:00 97.8 62 18 100/58 97 05/06/16 20:00 97.0 68 20 98/56 97 05/06/16 16:00 96.5 67 18 96/56 98 05/06/16 12:00 97.4 63 18 100/58 98 I/O 05/06/16 05/06/16 05/06/16 05/07/16 05/07/16 05/07/16 07:00 15:00 23:00 07:00 15:00 23:00 Intake Total 360 ml 1080 ml 480 ml 240 ml Output Total 300 ml 1400 ml 550 ml Balance 60 ml 1080 ml -920 ml -310 ml Intake Oral 360 ml 1080 ml 480 ml 240 ml IV Total 0 ml Output Urine Total 300 ml 1400 ml 550 ml # Voids 4 # Bowel Movements 0 0 0 0 Result Diagram: 05/04/1640505/04/16405 Objective Remarks GENERAL: Obese female in no acute distress. CARDIOVASCULAR: Normal rate and regular rhythm without murmurs, gallops, or rubs. RESPIRATORY: Good respiratory efforts. Breath sounds equal and clear to auscultation bilaterally. PSYCH: Appropriate mood and affect. A/P Problem List: (1) Hypercapnia ICD Code: R06.89 Status: Acute (2) Generalized weakness ICD Code: R53.1 Status: Acute (3) Hyperkalemia ICD Code: E87.5 Status: Acute (4) DM type 2 (diabetes mellitus, type 2) ICD Code: E11.9 Status: Chronic (5) HTN (hypertension) ICD Code: I10 Status: Chronic (6) CHF (congestive heart failure) ICD Code: I50.9 Status: Chronic (7) COPD (chronic obstructive pulmonary disease) ICD Code: J44.9 Status: Chronic (8) Hypothyroidism ICD Code: E03.9 Status: Chronic Assessment and Plan Patient is a 56-year-old white female who came into the hospital with altered mental status. CT of the head showed normal examination. Encephalopathy -some underlying chronicity. Patient reports multiple chronic conditions including lupus. The patient's niece reported this has been an ongoing problem. She appeared to be more awake and alert today. Family no longer able to care for her. - Patient is on multiple medications that can contribute to altered mental status. - CT of the head showed normal examination. -Sedating medications has been reduced CHF - chest x-ray showed cardiomegaly with subsegmental basilar airspace disease. Differential diagnosis includes early changes of pulmonary edema - continue Bumex 2 mg every other day, metolazone every other day -BNP unremarkable COPD, chronic - O2 dependent - Albuterol when necessary Generalized weakness - per family. Patient has been having recurrent falls at home they can no longer care for her. Physical therapy agreed the patient needs intermediate facility. - Risk for falls, patient can be discharged to a intermediate facility. DM 2 - continue glimepiride Chronic pain - continue on methadone, baclofen HTN - continue ASA, lisinopril 5 mg daily Hypothyroidism - TSH 2.250, continue levothyroxine Discharge Planning Patient is medically stable for discharge to intermediate facility once arrangements are made. Activity: Per physical therapy Diet: Diabetic Follow-up with PCP as scheduled Medications: Per med rec Problem Qualifiers (1) DM type 2 (diabetes mellitus, type 2): Maria Del Carmen Nicholson MD May 07, 2016 11:18
[2016-05-07 12:00] VITALS: BP 90/48; PULSE 71; RESP 14; TEMP 97; O2SAT 97
--- NOTE | 2016-05-07 15:42 | PQ ---
Physician Query Response Document PATIENT: LISSETTE DOW : 1960 ADMIT DATE: 05/03/2016 11:06 PM DISCH DATE: RESPONDING PROVIDER #: [email or web address] QUERY TEXT: Encephalopathy Type Encephalopathy is documented in the Medical Record. Please specify type Such as: -- Alcoholic -- Anoxic -- Due to medications or drugs (please specify) -- Hepatic failure (please specify if with or without coma) -- Hypertensive -- Metabolic -- Septic -- Toxic -- Wernicke?s -- Other, please specify The patient's Clinical Indicators include: Encephalopathy -some underlying chronicity. Patient reports multiple chronic conditions including radha pus. The patient's niece reported this has been an ongoing problem. She appeared to be more awake a nd alert today. - Patient is on multiple medications that can contribute to altered mental status. - CT of the head showed normal examination. - Reduce sedating medications Per EMS patient oxygen saturation was 86%'s percent on room air upon their arrival. Potassium 5.2, BUN 19 Query created by: Mary Gonzalez on 05/06/2016 9:14 AM RESPONSE TEXT: Provider disagreed with this CDI query. Electronically signed by: Maria Del Carmen Nicholson MD 05/07/2016 3:39 PM
[2016-05-07 16:00] VITALS: BP 116/67; PULSE 74; RESP 16; TEMP 96.6; O2SAT 98
--- NOTE | 2016-05-24 11:03 | PQ ---
Physician Query Response Document PATIENT: LISSETTE DOW : 1960 ADMIT DATE: 05/03/2016 11:06 PM DISCH DATE: 05/07/2016 5:29 PM RESPONDING PROVIDER #: [email or web address] QUERY TEXT: CHF Acuity and Type Congestive Heart Failure is documented in the Medical Record. Please document the type and acuity (in cludes probable or suspected) Such as: Type: -- Systolic -- Diastolic -- Combined -- Other, please specify Acuity: -- Acute -- Chronic -- Acute on chronic -- Other, please specify Also please document the underlying cause of the CHF (includes probable or suspected) If you need further assistance please call the [facility] hotline at ext [phone] The patient's Clinical Indicators include: According to the progress note dated 05/05/76: CHF - chest x-ray showed cardiomegaly with subsegmental basilar airspace disease. Differential diagnosis includes early changes of pulmonary edema - continue Bumex 2 mg every other day, metolazone every other day -BNP unremarkable Query created by: Mary Gonzalez on 05/14/2016 1:31 PM RESPONSE TEXT: Correction. Patient had suspected CHF on admission due to her presentation. CHF was not proven. Early pulmonary edema was probably noncardiac in origin. Electronically signed by: Maria Del Carmen Nicholson MD 05/24/2016 10:58 AM
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
== END 2016-05-07 17:29 | DRG 204 ==
LOC: NEPC 20:27 → NEDA 23:06 → NEDH 05-04 03:17 → N07B 05-04 14:55
PROVIDERS: ADMIT Family Medicine; ATTEND Family Medicine
PROC: 5A09357 Assistance with Respiratory Ventilation, Less than 24 Consecutive Hours, Continuous Positive Airway Pressure (ICD-10-PCS; principal; 2016-05-03)
DX: R06.89 Other abnormalities of breathing (principal); G93.40 Encephalopathy, unspecified; E87.2 Acidosis; M32.9 Systemic lupus erythematosus, unspecified; Z99.81 Dependence on supplemental oxygen; E87.5 Hyperkalemia; R53.1 Weakness; I10 Essential (primary) hypertension; E03.9 Hypothyroidism, unspecified; E11.9 Type 2 diabetes mellitus without complications; M10.9 Gout, unspecified; K21.9 Gastro-esophageal reflux disease without esophagitis; I25.10 Atherosclerotic heart disease of native coronary artery without angina pectoris; J44.9 Chronic obstructive pulmonary disease, unspecified; E78.00 Pure hypercholesterolemia, unspecified; G89.29 Other chronic pain; E78.5 Hyperlipidemia, unspecified; M19.90 Unspecified osteoarthritis, unspecified site; R29.6 Repeated falls; Z82.49 Family history of ischemic heart disease and other diseases of the circulatory system; Z88.1 Allergy status to other antibiotic agents; Z88.8 Allergy status to other drugs, medicaments and biological substances; Z91.14 Patient's other noncompliance with medication regimen; Z91.19 Patient's noncompliance with other medical treatment and regimen; Z86.72 Personal history of thrombophlebitis; Z87.891 Personal history of nicotine dependence; Z79.891 Long term (current) use of opiate analgesic
CPT/HCPCS: 36600; 51702; 70450; 71010; 80048; 80053; 80307; 80320; 81001; 82010; 82140; 82550; 82805; 82948; 83690; 83880; 84443; 84484; 85025; 85610; 85730; 93005; 94002; 94003